=== PATIENT | female | born 1990 | race Hispanic/Latino ===

== ENCOUNTER 2018-10-01 23:14 | Emergency (ER) | payer BC ==
[2018-10-01] MEDS ORDERED: Ondansetron ODT 4 MG TAB ONE (23:50)
[2018-10-01 23:53] LABS: Bilirubin Negative (Negative); Blood, Urine Moderate (Negative); Clarity CLOUDY (Clear); Glucose, Urine (Dipstick) Negative (Negative); Leukocyte Small (Negative); Nitrite Negative (Negative); Protein, Urine (Dipstick) Negative (Neg-Trace); Urobilinogen 0.2 mg/dL (0.2-1.0); pH, Urine 7.5 (5.0-9.0)
[2018-10-01 23:54] LABS: Pregnancy Test - Urine (BHCG) Negative (Negative)
[2018-10-01 23:56] LABS: Bacteria/HPF Rare-Few HPF (None Seen); Hyaline Casts/LPF 4-6 HYALINE CAST LPF (0-3 Hyaline); Pathc Cast-AUWi Flag 1.01 (0-2.49)
[2018-10-02] LABS: Pregu Control Background? CLEAR/WHITE (CLR/WHITE); Pregu Control Bar Appear? YES (CONTROL BAR)
[2018-10-02 00:11] LABS: #Lymphocytes 1.3 thou/uL (1.20-3.40); #Monocytes 0.6 thou/uL (0.11-0.59); #Neutrophils 11.8 thou/uL (1.40-6.50); %Basophils 0.2 % (0.0-1.0); %Eosinophils 0.2 % (0.0-10.0); %Lymphocytes 9.4 % (21.0-51.0); %Monocytes 4.6 % (0.0-10.0); %Neutrophils 85.5 % (42.0-75.0); Hemoglobin 13.8 g/dL (12.0-16.0); Mean Corpuscular HGB CONC 34.1 g/dL (32.0-36.0); Mean Corpuscular Hemoglobin 32.1 pg (27.0-31.0); Mean Platelet Volume 7.1 fL (7.4-10.4); Platelet Count 228 thou/uL (130-400); Red Blood Cell (RBC) Count 4.29 mill/uL (4.20-5.40); White Blood Cell (WBC) Count 13.7 thou/uL (4.8-10.8)
[2018-10-02 00:29] LABS: ALT (SGPT) 14 U/L (8-55); AST (SGOT) 17 U/L (5-34); Albumin 4.5 g/dL (3.5-5.0); Alkaline Phosphatase 84 U/L (40-150); Anion Gap 15 mmol/L (10-20); BUN (Urea Nitrogen) 14 mg/dL (7.0-18.7); Bilirubin, Total 0.9 mg/dL (0.2-1.2); Calc. Creatinine Clearance 0 mL/min (70-130); Calcium 10.1 mg/dL (7.8-10.44); Carbon Dioxide 26 mmol/L (22-29); Chloride 104 mmol/L (98-107); Estimated GFR-MDRD 61; Globulin 3.7 g/dL (2.4-3.5); Glucose 118 mg/dL (70-105); Potassium 3.5 mmol/L (3.5-5.1); Protein, Total 8.2 g/dL (6.0-8.3); Sodium 141 mmol/L (136-145)
[2018-10-02] MEDS ORDERED: Lidocaine 1% (PF) 30 ML VIAL ONE (00:59)
[2018-10-02] MEDS ORDERED: diphenhydrAMINE 50 MG/ML VIAL ONE (01:50)
[2018-10-02] MEDS ORDERED: Metoclopramide HCl 10 MG/2 ML VIAL ONE (01:50)
[2018-10-02] MEDS ORDERED: Ketorolac Tromethamine 30 MG/ML VIAL ONE (01:50)
--- NOTE | 2018-10-02 08:15 | RAD ---
CHEST 1 VIEW: INDICATION: Emergency room examination for back spasms and nausea and vomiting. FINDINGS: Lungs are clear. Cardiomediastinal silhouette is within normal limits. No acute osseous abnormality is evident. IMPRESSION: No acute cardiopulmonary abnormality. POS: [facility]
== END 2018-10-02 02:54 | disposition home or self-care (01) ==
LOC: ERS 23:14
DX: R51 Headache (principal); N39.0 Urinary tract infection, site not specified; M54.2 Cervicalgia; M54.6 Pain in thoracic spine
CPT/HCPCS: 36415; 64461; 71045; 80053; 81003; 81015; 81025; 85025; 96361; 96365; 96375; J1200; J1885; J2001; J2765; Q0162

== ENCOUNTER 2018-10-25 21:41 | Emergency (ER) | payer BC ==
[2018-10-26 01:01] LABS: Anion Gap 11 mmol/L (10-20); BUN (Urea Nitrogen) 12 mg/dL (7.0-18.7); Calc. Creatinine Clearance 0 mL/min (70-130); Calcium 9.9 mg/dL (7.8-10.44); Carbon Dioxide 25 mmol/L (22-29); Chloride 108 mmol/L (98-107); Estimated GFR-MDRD 80; Glucose 85 mg/dL (70-105); Potassium 3.7 mmol/L (3.5-5.1); Sodium 140 mmol/L (136-145)
[2018-10-26] MEDS ORDERED: Morphine 4 MG/ML VIAL ONE (01:21)
[2018-10-26] MEDS ORDERED: Ondansetron PF 4 MG/2 ML Vial ONE (01:21)
[2018-10-26] MEDS ORDERED: Ketorolac Tromethamine 30 MG/ML VIAL ONE (02:01)
--- NOTE | 2018-10-26 07:37 | CT ---
CTA OF THE NECK WITH IV CONTRAST AND 3D REFORMATTED IMAGING: Date: 10/26/18 INDICATION: 28-year-old female with sudden onset of right-sided back and neck pain since 09/30/18. COMPARISON: None. FINDINGS: No hemodynamically significant stenosis, occlusion, or aneurysmal formation seen involving the great vessels of the neck. The vertebral arteries and ICAs appear widely patent. The visualized aspects of the basilar artery, [employer], and MCAs appear widely patent. Visualized intracra nial contents appear within normal limits. Visualized orbits are unremarkable appearing. Visualized aerodigestive tract is unremarkable appearing. There are a few shotty appearing lymph nodes seen within right Level IIA and IIIA position. There are mild shotty appearing lymph nodes within the left Level IIA position. A few shotty appearing lymph n odes are seen within the right and left parotid glands. Submandibular and thyroid glands are normal a ppearing. Lung apices are clear. No acute osseous abnormality is evident. IMPRESSION: 1. No definite acute abnormality seen. 2. A few shotty appearing lymph nodes seen within the upper neck are nonspecific. POS: [facility]
== END 2018-10-26 02:27 | disposition home or self-care (01) ==
LOC: ERS 21:41
DX: M54.12 Radiculopathy, cervical region (principal); M54.6 Pain in thoracic spine
CPT/HCPCS: 70498; 80048; 96374; 96375; J1885; J2270; J2405

== ENCOUNTER 2018-11-03 11:08 | Outpatient (CLI) | payer BC ==
--- NOTE | 2018-11-03 14:13 | MRI ---
MRI CERVICAL SPINE WITHOUT CONTRAST: HISTORY: Cervical radiculopathy. COMPARISON: None. TECHNIQUE: A cervical spine MRI is performed without intravenous Gadolinium administration. Multisequential, mu ltiplanar imaging is performed. FINDINGS: There is diffuse T1 marrow signal hypointensity of the cervical vertebrae. Correlate for anemia or a marrow infiltrative process No significant associated T2 or STIR hyperintensity. The visualized brain parenchyma, the cervicomedullary junction, the cervical cord, and the upper thor acic cord have normal size and signal intensity. C2-C3: No significant central canal stenosis or foraminal narrowing. C3-C4: No significant central canal stenosis or foraminal narrowing. C4-C5: No significant central canal stenosis or foraminal narrowing. C5-C6: No significant central canal stenosis or foraminal narrowing. C6-C7: No significant central canal stenosis or foraminal narrowing. C7-T1: No significant central canal stenosis or foraminal narrowing. Note is made of a small, incidental peroneal sleeve cyst in the left neural foramen, at T1-T2. IMPRESSION: 1. No significant central canal stenosis or foraminal narrowing. 2. T1 marrow signal hypointensity, likely due to marrow infiltrative process or anemia. Correlate c linically. POS: [facility]
== END 2018-11-03 11:09 | disposition home or self-care (01) ==
LOC: SCSMRI 11:08
PROVIDERS: ATTEND Family Medicine
DX: M54.12 Radiculopathy, cervical region (principal)
CPT/HCPCS: 72141